=== PATIENT | male | born 2000 | race Caucasian/White ===

== ENCOUNTER 2021-04-22 14:10 | Emergency (ER) | payer SELFPAY ==
[2021-04-22 14:18] VITALS: BP 111/77; PULSE 95; RESP 20; TEMP 36.4; O2SAT 100
[2021-04-22] MEDS: ONDANSETRON INJ 4 MG/2 ML VIAL IV PUSH (14:31)
[2021-04-22] MEDS: SODIUM CHLORIDE 0.9% IV 1,000 ML 999 ML IV CONT (14:31)
[2021-04-22] MEDS: FAMOTIDINE 20 MG/2 ML VIAL IV PUSH (14:31)
[2021-04-22 14:39] LABS: Basophils Percent Auto 0.4 % (0.2-1.2); Eosinophils Percent Auto 0.4 % (0-4.4); Hematocrit 45.4 % (42.0-52.0); Hemoglobin 16.3 g/dL (14.0-18.0); Immature Granulocyte Absolute 0.02 K/mm3 (0.00-0.031); Immature Granulocyte Percent A 0.2 % (0-0.5); Lymphocytes Absolute Auto 0.51 K/mm3 (0.9-3.2); Lymphocytes Percent Auto 5.7 % (18.3-44.2); Mean Corpuscular HGB Conc 35.9 g/dl (32-36); Mean Corpuscular Hemoglobin 31.4 pg (26-34); Mean Corpuscular Volume 87.5 fl (80-100); Mean Platelet Volume 9.5 fl (7.4-10.4); Monocytes Absolute Auto 0.6 K/mm3 (0.1-0.6); Monocytes Percent Auto 6.5 % (2.6-8.5); Neutrophils Absolute Auto 7.8 K/mm3 (1.3-6.7); Neutrophils Percent Auto 86.8 % (45.5-73.1); Platelet Count Result 188 k/mm3 (150-375); Red Blood Count 5.19 M/mm3 (4.6-6.20); Red Cell Distribution Width 12.1 % (11.5-14.5)
[2021-04-22 14:51] LABS: Alanine Aminotransferase 18 U/L (4-50); Albumin Level 5.3 g/dL (3.7-5.6); Alkaline Phosphatase 98 U/L (58-237); Anion Gap 10 mmol/L (8-16); Aspartate Amino Transferase 27 U/L (17-59); Bilirubin,Total 1.5 mg/dL (0.2-1.3); Blood Urea Nitrogen 23 mg/dL (8-21); Calcium 9.9 mg/dL (8.9-10.7); Carbon Dioxide 25 mmol/L (22-30); Chloride 103 mmol/L (98-107); Estimated CRCL calculation 89 ml/min; Estimated Glomerular Filt Rate > 60; Glucose 117 mg/dL (65-110); Lipase 39 U/L (23-300); Potassium 4.3 mmol/L (3.4-5.0); Sodium 138 mmol/L (134-143)
--- NOTE | 2021-04-22 14:59 | ED.GENADULT ---
HPI - General Adult General Chief complaint: Unspecified Stated complaint: Choking Source: patient Mode of arrival: ambulatory Limitations: no limitations History of Present Illness HPI narrative: Patient is a 20-year-old male who presented with nausea and vomiting that began acutely this morning had felt fine yesterday denies similar occurrence presents per EMS nondistressed notes some cramping in the abdomen. Patient denies any diarrhea rectal bleeding melena hematemesis has not taken anything for his symptoms on arrival appears nondistressed Related Data Allergies Allergy/AdvReac Type Severity Reaction Status Date / Time No Known Allergies Allergy Verified 04/22/21 14:20 Review of Systems Review of Systems: All systems reviewed & are unremarkable except as noted in HPI and below Exam Narrative: GENERAL: Well-appearing, well-nourished, and in no acute distress. HEAD: Normocephalic, atraumatic. EYES: PERRLA and EOMI. ENT: Nares clear, no rhinorrhea or epistaxis. Mucous membranes moist. CHEST: Clear to auscultation. No respiratory distress. No wheezes rales or rhonchi HEART: Regular rate and rhythm. No murmur heard. Normal peripheral pulses. ABDOMEN: Soft, nontender, nondistended. EXTREMITIES: Normal range of motion. No edema. SKIN: Warm, dry, no rash. NEURO: No focal deficits. Alert and oriented x3. Cranial nerves II through XII grossly intact PSYCH: Normal mood and affect. Course Course Emergency Course: Patient in the room nondistressed aware of case findings treatment plan diagnosis had improvement with medications likely [place] uritis or viral syndrome felt appropriate for outpatient reevaluation given indications for return he agrees with the treatment plan Vital Signs Vital signs: Vital Signs Temperature 97.6 F 04/22/21 14:18 Pulse Rate 95 04/22/21 14:18 Respiratory Rate 20 04/22/21 14:18 Blood Pressure 111/77 04/22/21 14:18 Pulse Oximetry 100 04/22/21 14:18 Temperature 97.6 F 04/22/21 14:18 Pulse Rate 95 04/22/21 14:18 Respiratory Rate 20 04/22/21 14:18 Blood Pressure 111/77 04/22/21 14:18 Pulse Oximetry 100 04/22/21 14:18 Medical Decision Making [facility] Narrative Medical decision making narrative: Patient with GI symptoms that began acutely is afebrile nontoxic-appearing nondistressed tolerating p.o. intake likely gastritis no cardiopulmonary or URI symptoms to suggest a referred cause no urinary or bowel issues. Patient will be discharged home with outpatient follow-up he is afebrile nontoxic-appearing nondistressed fluids antiemetics help resolve symptoms Vital Signs Vital Signs: Vital Signs Temperature 97.6 F 04/22/21 14:18 Pulse Rate 95 04/22/21 14:18 Respiratory Rate 20 04/22/21 14:18 Blood Pressure 111/77 04/22/21 14:18 Pulse Oximetry 100 04/22/21 14:18 Temperature 97.6 F 04/22/21 14:18 Pulse Rate 95 04/22/21 14:18 Respiratory Rate 20 04/22/21 14:18 Blood Pressure 111/77 04/22/21 14:18 Pulse Oximetry 100 04/22/21 14:18 Lab Data Result diagrams: 04/22/21 14:32 04/22/21 14:32 Labs: Lab Results 04/22/21 04/22/21 Range/Units 14:32 14:32 WBC 9.0 (4.5-10.0) K/mm3 RBC 5.19 (4.6-6.20) M/mm3 Hgb 16.3 (14.0-18.0) g/dL Hct 45.4 (42.0-52.0) % MCV 87.5 (80-100) fl MCH 31.4 (26-34) pg MCHC 35.9 (32-36) g/dl RDW 12.1 (11.5-14.5) % Plt Count 188 (150-375) k/mm3 MPV 9.5 (7.4-10.4) fl Immature Gran % (Auto) 0.2 (0-0.5) % Neut % (Auto) 86.8 H (45.5-73.1) % Lymph % (Auto) 5.7 L (18.3-44.2) % [place] % (Auto) 6.5 (2.6-8.5) % Eos % (Auto) 0.4 (0-4.4) % Baso % (Auto) 0.4 (0.2-1.2) % Lymph # (Auto) 0.51 L (0.9-3.2) K/mm3 [place] # (Auto) 0.6 (0.1-0.6) K/mm3 Eos # (Auto) 0.0 (0-0.3) K/mm3 Baso # (Auto) 0.0 (0.0-0.1) K/mm3 Abs Immat Gran (auto) 0.02 (0.00-0.031) K/mm3 Absolute Neuts (auto) 7.8 H (1.3-6.7) K/mm3 Absolute N
--- NOTE | 2021-04-22 15:36 | PC.NURSE ---
Had emesis of approx 200 ml liquid. States he doesn't feel like he has anything in his throat now.
== END 2021-04-22 17:25 | disposition home or self-care (01) ==
PROVIDERS: Emergency Medicine Emergency Medical Services; Emergency Provider Emergency Medicine
DX: R10.9 Unspecified abdominal pain (principal)
CPT/HCPCS: 36415; 80053; 83690; 85025; 96361; 96374; 96375; 99284; J2405; J7030

== ENCOUNTER 2024-05-09 06:01 | Emergency (ER) | payer SELFPAY ==
--- NOTE | 2024-05-09 06:06 | PC.NURSE ---
Patient's father in triage states that when he saw his son this morning he noticed red in his vomit.
[2024-05-09 06:19] VITALS: BP 116/90; PULSE 78; RESP 18; TEMP 36.6; O2SAT 99
[2024-05-09 06:22] LABS: Basophils Absolute Auto 0.1 K/mm3 (0.0-0.1); Basophils Percent Auto 1.1 % (0.2-1.2); Eosinophils Absolute Auto 0.1 K/mm3 (0-0.3); Eosinophils Percent Auto 1.1 % (0-4.4); Hematocrit 43.1 % (42.0-52.0); Hemoglobin 15.6 g/dL (14.0-18.0); Lymphocytes Absolute Auto 1.88 K/mm3 (0.9-3.2); Lymphocytes Percent Auto 41.5 % (18.3-44.2); Mean Corpuscular HGB Conc 36.2 g/dl (32-36); Mean Corpuscular Hemoglobin 33.1 pg (26-34); Mean Corpuscular Volume 91.5 fl (80-100); Monocytes Absolute Auto 0.4 K/mm3 (0.1-0.6); Monocytes Percent Auto 7.9 % (2.6-8.5); Neutrophils Absolute Auto 2.2 K/mm3 (1.3-6.7); Neutrophils Percent Auto 48.4 % (45.5-73.1); Platelet Count Result 226 k/mm3 (150-375); Red Blood Count 4.71 M/mm3 (4.6-6.20); Red Cell Distribution Width 11.8 % (11.5-14.5); White Blood Count 4.5 K/mm3 (4.5-10.0)
[2024-05-09 06:23] LABS: Add Urine Microscopic? NO; Appearance Urine Clear (Clear); Bilirubin Urine Negative (Negative); Blood Urine Negative (Negative); Color Urine Yellow (Yellow); Glucose Urine UA Negative (Negative); Ketones Urine Negative (Negative); Leukocyte Esterase Ur Negative LEU/UL (Negative); Nitrate Urine Negative (Negative); Protein Urine Negative (Negative); pH Urine 5.5 (5.0-9.0)
[2024-05-09 06:35] LABS: Alanine Aminotransferase 20 U/L (6-50); Alkaline Phosphatase 78 U/L (38-126); Anion Gap 14 mmol/L (4-12); Aspartate Amino Transferase 35 U/L (17-59); Bilirubin,Total 1.1 mg/dL (0.2-1.3); Blood Urea Nitrogen 11 mg/dL (9-20); Calcium 9.6 mg/dL (8.4-10.2); Carbon Dioxide 24 mmol/L (22-30); Chloride 103 mmol/L (98-107); Estimated CRCL calculation 105 ml/min; Estimated Glomerular Filt Rate > 60; Glucose 104 mg/dL (65-110); Lipase 38 U/L (23-300); Potassium 3.9 mmol/L (3.4-5.0); Sodium 141 mmol/L (137-145)
[2024-05-09 07:11] VITALS: BP 118/77; PULSE 74; RESP 19; O2SAT 99
[2024-05-09 07:50] VITALS: BP 113/76; BP 122/72; PULSE 66; PULSE 76
[2024-05-09 07:51] VITALS: BP 126/95; PULSE 82
[2024-05-09] MEDS: ONDANSETRON INJ 4 MG/2 ML VIAL IV PUSH (07:54)
[2024-05-09] MEDS: BELLADONNA ALK/PHENOB ELIX 10 ML, MAG HYDROX/ALUMINUM HYD/SIMETH 30 ML, LIDOCAINE 2% VI... PO (07:54)
--- NOTE | 2024-05-09 09:23 | ED.GENADULT ---
HPI - General Adult General Chief complaint: Nausea/Vomiting/Diarrhea Stated complaint: Vomiting everyday for a month Time Seen by Provider: 05/09/24 07:04 History of Present Illness HPI narrative: Patient is a 23-year-old male who presents ER with nausea vomiting. Has chronic issue with vomiting and happens nearly every day. Today he had multiple episodes of vomiting was found lying in a ball by his father. Occasional have some pink blood in his emesis. No diarrhea. Patient reports he smokes marijuana nearly daily. Has never been told he has cyclic vomiting related to cannabis abuse. Occasional diarrhea. No known sick contacts. No black tarry stools. Related Data Allergies Allergy/AdvReac Type Severity Reaction Status Date / Time No Known Allergies Allergy Verified 05/09/24 06:05 Review of Systems Review of Systems: All systems reviewed & are unremarkable except as noted in HPI and below Constitutional: Constitutional: Reports no additional constitutional complaints Cardiovascular: Cardiovascular: Reports no additional cardiovascular complaints Respiratory: Respiratory: Reports no additional respiratory complaints Gastrointestinal: Gastrointestinal: Reports no additional gastrointestinal complaints [facility] Past Medical History Medical History (Updated 05/09/24 @ 18:43 by Obed Pina MD) Healthy adult male Surgical History Surgical History (Updated 05/09/24 @ 18:43 by Obed Pina MD) No pertinent past surgical history Exam Narrative: GENERAL: Well-appearing, well-nourished, and in no acute distress. HEAD: Normocephalic, atraumatic. ENT: Mucous membranes moist. CHEST: Clear to auscultation. No respiratory distress. HEART: Regular rate and rhythm. Normal peripheral pulses. ABDOMEN: Soft, nontender, nondistended. EXTREMITIES: Normal range of motion. No edema. SKIN: Warm, dry, no rash. NEURO: Alert and oriented x3. PSYCH: Normal mood and affect. Course Course Emergency Course: Feels improved GI cocktail and antiemetics. Discharged with Zofran as well as famotidine. Recommend avoidance of marijuana and patient verbalized understanding. Will give on-call PCP. Vital Signs Vital signs: Vital Signs Temperature 97.8 F 05/09/24 06:19 Pulse Rate 78 05/09/24 06:19 Respiratory Rate 18 05/09/24 06:19 Blood Pressure 116/90 05/09/24 06:19 Pulse Oximetry 99 05/09/24 06:19 Oxygen Delivery Room Air 05/09/24 06:19 Temperature 97.8 F 05/09/24 06:19 Pulse Rate 76 05/09/24 09:32 Respiratory Rate 20 05/09/24 09:32 Blood Pressure 127/83 05/09/24 09:32 Pulse Oximetry 100 05/09/24 09:32 Oxygen Delivery Room Air 05/09/24 06:19 Medical Decision Making Vital Signs Vital Signs: Vital Signs Temperature 97.8 F 05/09/24 06:19 Pulse Rate 78 05/09/24 06:19 Respiratory Rate 18 05/09/24 06:19 Blood Pressure 116/90 05/09/24 06:19 Pulse Oximetry 99 05/09/24 06:19 Oxygen Delivery Room Air 05/09/24 06:19 Temperature 97.8 F 05/09/24 06:19 Pulse Rate 76 05/09/24 09:32 Respiratory Rate 20 05/09/24 09:32 Blood Pressure 127/83 05/09/24 09:32 Pulse Oximetry 100 05/09/24 09:32 Oxygen Delivery Room Air 05/09/24 06:19 Lab Data 05/09/24 06:16 05/09/24 06:16 Labs: Lab Results 05/09/24 Range/Units 06:16 WBC 4.5 (4.5-10.0) K/mm3 RBC 4.71 (4.6-6.20) M/mm3 Hgb 15.6 (14.0-18.0) g/dL Hct 43.1 (42.0-52.0) % MCV 91.5 (80-100) fl MCH 33.1 (26-34) pg MCHC 36.2 H (32-36) g/dl RDW 11.8 (11.5-14.5) % Plt Count 226 (150-375) k/mm3 MPV 9.0 (7.4-10.4) fl Immature Gran % (Auto) 0.0 (0-0.5) % Neut % (Auto) 48.4 (45.5-73.1) % Lymph % (Auto) 41.5 (18.3-44.2) % [place] % (Auto) 7.9 (2.6-8.5) % Eos % (Auto) 1.1 (0-4.4) % Baso % (Auto) 1.1 (0.2-1.2) % Lymph # (Auto) 1.88 (0.9-3.2) K/mm3 [place] # (Auto) 0.4 (0.1-0.6) K/mm3 Eos # (Auto) 0.1 (0-0.3) K/mm3 Baso # (Auto) 0.1 (0.0-0.1) K/mm3 Abs Immat Gran (auto) 0.00 (0.00-0.031) K/mm3 Absolute Neuts (auto) 2.2 (1.3-6.7) K/mm3 Absolute Nucleated RBC 0.000 (0.0-0.012) K/mm3 Nucleated RBC % 0.0 (0.0-0.2) % Sodium 141 (137-145) mmol/L Potassium 3.9 (3.4-5.0) mmol/L Chloride 103 (98-107) mmol/L Carbon Dioxide 24 (22-30) mmol/L Anion Gap 14 H (4-12) mmol/L BUN 11 D (9-20) mg/dL Creatinine 0.74 (0.7-1.3) mg/dL Estim Creat Clear Calc 105 ml/min Estimated GFR > 60 (59 - ) Glucose 104 (65-110) mg/dL Calcium 9.6 (8.4-10.2) mg/dL Total Bilirubin 1.1 (0.2-1.3) mg/dL AST 35 (17-59) U/L ALT 20 (6-50) U/L Alkaline Phosphatase 78 (38-126) U/L Total Protein 8.0 (6.3-8.2) g/dL Albumin 5.0 (3.5-5.1) g/dL Lipase 38 (23-300) U/L Urine Color Yellow (Yellow) Urine Appearance Clear (Clear) Urine pH 5.5 (5.0-9.0) Ur Specific [place] 1.020 (1.001-1.035) Urine Protein Negative (Negative) mg/dL Urine Glucose (UA) Negative (Negative) mg/dL Urine Ketones Negative (Negative) mg/dL Ur Blood (Man) Negative (Negative) Urine Nitrate Negative (Negative) Urine Bilirubin Negative (Negative) Urine Urobilinogen 1.0 (<2.0) mg/dL Leukocyte Esterase Rfl Negative (Negative) SABA/UL Blood Type O Positive Antibody Screen Negative Discharge Plan Discharge Clinical Impression: Nausea and vomiting Patient Disposition: Home, Self-Care Condition: Stable Instructions: Acute Nausea and Vomiting (ED) Additional Instructions: Your nausea vomiting may be related to cannabis abuse. It is recommended you discontinue use of cannabis to see if her symptoms improve. Follow up with the primary care doctor and possibly GI doctor should your symptoms continue. Zofran will be prescribed for nausea. Patient Language: Togolese Prescriptions: New ondansetron 4 mg tablet,disintegrating 4 mg PO Q6H PRN (Reason: nausea and vomiting) Qty: 10 0RF No Action ondansetron 4 mg tablet,disintegrating 4 mg PO Q8H PRN (Reason: nausea and vomiting) Qty: 7 0RF famotidine [Acid-Pep] 20 mg tablet 20 mg PO BID Qty: 20 0RF Follow-up/Referrals: Danitza Sales MD [Physician] - 1 Week UNKNOWN,DOCTOR [Primary Care Provider] -
[2024-05-09 09:32] VITALS: BP 127/83; PULSE 76; RESP 20; O2SAT 100
== END 2024-05-09 09:33 | disposition home or self-care (01) ==
PROVIDERS: Emergency Medicine; Emergency Provider Emergency Medicine
DX: R11.2 Nausea with vomiting, unspecified (principal)
CPT/HCPCS: 36415; 80053; 81003; 83690; 85025; 86850; 86900; 86901; 96374; 99284; A9270; J2405

== ENCOUNTER 2024-12-24 17:33 | Emergency (ER) | payer SELFPAY ==
--- OUTSIDE RECORDS SUMMARY | 2024-12-24 17:35 | XMS_ITS | Clinical Summary ---
Author Organization [facility] Address [address] [place] [id number] Care Team Providers Care Bi Manager Name Role Phone None, Provider MD Primary Care Provider Unavaila ble Allergies No known active allergies Social History Tobacco Use Types Packs/Day Years Used Date Smoking Tobacco: Never Smokeless Tobacco: Never Tobacco Cessation:Counseling Given: Not Answered Alcohol Use Standard Drinks/Week Comments Never 0 (1 standard drink = 0.6 oz pur e alcohol) Sex and Gender Information Value Date Recorded Sex Assigned at Not on file Legal Sex Male 4:57 PM CDT Gender Identity Not on file Sexual Orientation Not on file Last Filed Vital Signs Vital Sign Reading Time Taken Comments Blood Pressure 123/75 09/05/2022 6:39 PM CDT Pulse 83 09/05/2022 6:39 PM CDT Temperature 36.5 C (97.7 F) 09/05/2022 6:39 PM CDT Respiratory Rate 18 09/05/2022 6:39 PM CDT Oxygen Saturation 100% 09/05/2022 6:39 PM CDT Inhaled Oxygen Concentration - - Weight 50.4 kg (111 lb 1.8 oz) 09/05/2022 6:39 P M CDT Height 177.8 cm (5' 10) 09/05/2022 6:39 PM CDT Body Mass Index 15.94 09/05/2022 6:39 PM CDT Plan of Treatment Health Maintenance Due Date Last Done Comments Annual Physical 2004 HPV Vaccines (1 - Male 3-dos e series) 2016 Meningococcal B Vaccine (1 o f 2 - Standard) 2017 Hepatitis C 06/16/2019 DTaP, Tdap and Td Vaccines ( 1 - Tdap) 2020 Hepatitis B Vaccines (1 of 3 - 19+ 3-dose series) 2020 COVID-19 Vaccine (1 - 2023-2 5 season) 2024 Influenza Adult (#1) 2024 Hepatitis A Vaccines Aged Out No long er eligible based on patient's age to complete this topic Meningococcal Vaccine Aged Out No navid david eligible based on patient's age to complete this topic Pneumococcal Vaccine: Pediat rics (0 to 5 Years) and At-Risk Patients (6 to 49 Years) Aged Out No longer eligible b ased on patient's age to complete this topic RSV Immunizations Under 20 Months Aged Out No longer eligible based on patient's age to complete this topic Care Teams Bi Manager Relationship Specialty Start Date End Date None, Provider, PCP - General UNKNOWN PHYSICIAN SPECIALTY 09/05/22
[2024-12-24 17:51] VITALS: BP 122/89; PULSE 89; RESP 14; TEMP 37.1; O2SAT 100
[2024-12-24 17:56] VITALS: O2SAT 100
--- OUTSIDE RECORDS SUMMARY | 2024-12-24 18:16 | XMS_ITS | Clinical Summary ---
Author Organization [facility] Address [address] [place] [id number] Care Team Providers Care Riding Silks Custodian Name Role Phone None, Provider MD Primary [...] age to complete this topic Care Teams Riding Silks Custodian Relationship Specialty Start Date End Date None, Provider, PCP - General UNKNOWN PHYSICIAN SPECIALTY 09/05/22
[2024-12-24 18:28] LABS: Strep Group A RT-PCR NOT DETECTED (Negative)
[2024-12-24 18:38] LABS: Influenza A QL RT-PCR Negative (Negative); Influenza B QL RT-PCR Negative (Negative); RSV RNA, RT-PCR Negative (Negative); SARS-CoV-2 RNA PCR Negative (Negative)
--- NOTE | 2024-12-24 18:52 | ED.URI ---
HPI - URI/Sore Throat General Chief Complaint: Upper Respiratory Infection Stated Complaint: sore throat, Time Seen by Provider: 12/24/24 17:47 Source: patient Mode of arrival: ambulatory Limitations: no limitations History of Present Illness HPI Narrative: This is a 24 year old male that presents to the ER for cold symptoms. Starting earlier today. Reports sore throat, congestion, otalgia. Denies cough. Related Data Allergies Allergy/AdvReac Type Severity Reaction Status Date / Time No Known Allergies Allergy Verified 12/24/24 17:36 Review of Systems Review of Systems: All systems reviewed & are unremarkable except as noted in HPI and below PMFSH Past Medical History Medical History (Updated 12/24/24 @ 18:52 by Erika Lowe PA-C) Healthy adult male Surgical History Surgical History (Updated 05/09/24 @ 18:43 by Obed Pina MD) No pertinent past surgical history Exam Narrative: GENERAL: Well-appearing, well-nourished, and in no acute distress. HEAD: Normocephalic, atraumatic. EYES: EOMI. ENT: Nares clear, no rhinorrhea or epistaxis. Mucous membranes moist. Oropharynx with mild redness, without tonsillar hypertrophy, exudate or other lesions. Bilateral TMs pearly reveles non-bulging NECK: Supple. No adenopathy or masses. CHEST: Clear to auscultation. No respiratory distress. No wheezes rales or rhonchi HEART: Regular rate and rhythm. No murmur heard. Normal peripheral pulses. EXTREMITIES: Normal range of motion. No edema. SKIN: Warm, dry, no rash. NEURO: No focal deficits. Alert and oriented x3. PSYCH: Normal mood and affect Course Vital Signs Vital signs: Vital Signs Temperature 98.8 F 12/24/24 17:51 Pulse Rate 89 12/24/24 17:51 Respiratory Rate 14 12/24/24 17:51 Blood Pressure 122/89 12/24/24 17:51 Pulse Oximetry 100 12/24/24 17:51 Oxygen Delivery Room Air 12/24/24 17:51 Temperature 98.8 F 12/24/24 17:51 Pulse Rate 89 12/24/24 17:51 Respiratory Rate 14 12/24/24 17:51 Blood Pressure 122/89 12/24/24 17:51 Pulse Oximetry 100 12/24/24 17:56 Oxygen Delivery Room Air 12/24/24 17:56 MDM - URI/Sore Throat MDM Narrative Medical decision making narrative: Patient presents to the emergency department for sore throat. He is afebrile and nontoxic appearing. Strep screen negative. Instructed on careof viral pharyngitis. Given warnings to return to the ER Differential Diagnosis Differential diagnosis: Likely upper respiratory infection, otitis media, sinusitis, viral infection, pharyngitis and other (strep) Lab Data Attestation: I reviewed the patient's lab results. Labs: Lab Results 12/24/24 Range/Units 17:54 Influenza A (RT-PCR) Negative (Negative) Influenza B (RT-PCR) Negative (Negative) RSV (RT-PCR) Negative (Negative) SARS-CoV-2 RNA (RT-PCR) Negative (Negative) Group A Strep (PCR) Not detected (Negative) Critical Care Time Critical Care Time Critical Care Time: No Discharge Plan Discharge Clinical Impression: Upper respiratory infection Qualifiers: URI type: unspecified viral URI Qualified Code(s): J06.9 - Acute upper respiratory infection, unspecified Patient Disposition: Home Condition: Stable Instructions: Upper Respiratory Infection (ED) Additional Instructions: Return to the emergency department for worsening symptoms, or any other concerns Remain well-hydrated, get plenty of rest. Take Tylenol or Motrin [id number] for pain as needed. Flonase for nasal congestion. Zyrtec for runny nose. Lozenges or Chloraseptic spray for sore throat. Follow up with primary care doctor Patient Language: Slovenian Prescriptions: No Action ondansetron 4 mg tablet,disintegrating 4 mg PO Q6H PRN (Reason: nausea and vomiting) Qty: 10 0RF ondansetron 4 mg tablet,disintegrating 4 mg PO Q8H PRN (Reason: nausea and vomiting) Qty: 7 0RF famotidine [Acid-Pep] 20 mg tablet 20 mg PO BID Qty: 20 0RF Follow-up/Referrals: PHYSICIAN,PIANO [employer]OUNDING [employer]ARD MATCHER [Primary Care Provider, Internal Medicine] Kameron Colvin MD [Physician, Family Practice]
== END 2024-12-24 19:25 | disposition home or self-care (01) ==
PROVIDERS: Student in an Organized Health Care Education/Training Program; Emergency Provider Physician Assistant
DX: J06.9 Acute upper respiratory infection, unspecified (principal); Z20.822 Contact with and (suspected) exposure to COVID-19
CPT/HCPCS: 87637; 87651; 99283